=== PATIENT | female | born 1990 | race Hispanic/Latino ===

== ENCOUNTER 2018-01-03 20:08 | Emergency (ER) | payer OTHER ==
[~2018-01-03] VITALS: Ht 157.5 cm; Wt 90.9 kg
[2018-01-03] MEDS ORDERED: METHYLPREDNISOLONE SOD SUCC 125 MG/2ML VIAL IV STA (20:28)
[2018-01-03] MEDS ORDERED: DIPHENHYDRAMINE HCL INJ 50 MG/ML VIAL IV STA (20:28)
[2018-01-03] MEDS ORDERED: FAMOTIDINE 20 MG/2 ML VIAL IV STA (20:28)
[2018-01-03 21:36] VITALS: BP 138/70
== END 2018-01-03 21:38 | disposition home or self-care (01) ==
LOC: FSED 20:08
DX: L50.9 Urticaria, unspecified (principal)
CPT/HCPCS: 80053; 81003; 81025; 85025; 87400; 96374; 96375; 99283; J1200; J2930